=== PATIENT | female | born 1955 | race Caucasian/White ===

== ENCOUNTER → 2017-08-10 | Outpatient (CLI) | payer BC ==
[~2017-08-10] MED LIST: ASPIR 8181 MG PO; ATORVASTATIN CA40 MG PO; GLUCOTROL5 MG PO; LISINOPRIL5 MG PO; LOPRESSOR50 PO; METFORMIN HCL500 MG PO; NITROGLYCERIN0.4 MG SUBLING; NOHOMEMEDICATIONS; PLAVIX 75 MG TA75 M1 PO; TESSALON200 MG PO; TYLENOL325 MG PO; ZPAK PO
== END ==
LOC: M.RAD 10:04
DX: Z12.31 Encounter for screening mammogram for malignant neoplasm of breast (principal)

== ENCOUNTER → 2018-08-16 | Outpatient (CLI) | payer BC | LOC: M.RAD 09:38 | DX: Z12.31 Encounter for screening mammogram for malignant neoplasm of breast (principal) ==